=== PATIENT | female | born 1965 | race Caucasian/White ===

== ENCOUNTER 2019-01-24 19:56 | Emergency (ER) | payer OTHER, MEDICAID ==
[2019-01-24] MEDS ORDERED: ACETAMINOPHEN 325 MG TABLET PO ONE (20:37)
--- NOTE | 2019-01-24 21:01 | RADIOLOGY REPORT (SQ) ---
EXAM DESCRIPTION: XR WRIST 3 OR MORE VIEWS COMPLETED DATE/TME: 01/24/2019 00:00 CLINICAL HISTORY: 53 years, Female, left wrist pain COMPARISON: None. NUMBER OF VIEWS: 3 TECHNIQUE: 3 views left wrist LIMITATIONS: None. FINDINGS: Osteopenia. Fixation plate and screws of the distal radius. Old healed distal radial metaphyseal fracture. No acute fracture or dislocation. Mild diffuse soft tissue swelling IMPRESSION: No acute osseous abnormality copyright 2010 [employer]- All Rights Reserved
--- NOTE | 2019-01-24 21:24 | ER Document Report ---
ED General - General Chief Complaint: Wrist Pain Stated Complaint: WRIST PAIN Time Seen by Provider: 01/24/19 21:13 TRAVEL OUTSIDE OF THE [place] IN LAST 30 DAYS: No - HPI Notes: Patient is a 53-year-old female presents emergency department for evaluation of left wrist pain. She is a history of fractures and surgical fixation of the left wrist. She states she was lifting at work yesterday when she felt a pop. She has had swelling since then. She was concerned she might have fractured something new. She denies any numbness or tingling, no other injuries. - Related Data Allergies/Adverse Reactions: No Known Allergies Allergy (Unverified 01/24/19 20:11) Past Medical History - General Information source: Patient - Vapes - Social History Smoking Status: Current Every Day Smoker Family History: Reviewed & Not Pertinent Patient has suicidal ideation: No Patient has homicidal ideation: No - Past Medical History Cardiac Medical History: Reports: Hx Hypertension Renal/ Medical History: Denies: Hx Peritoneal Dialysis Past Surgical History: Reports: Hx Orthopedic Surgery - left wrist Review of Systems - Review of Systems Constitutional: No symptoms reported EENT: No symptoms reported Cardiovascular: No symptoms reported Respiratory: No symptoms reported Gastrointestinal: No symptoms reported Genitourinary: No symptoms reported Musculoskeletal: See HPI Skin: No symptoms reported Neurological/Psychological: No symptoms reported Physical Exam - Vital signs Vitals: Temp Pulse Resp BP Pulse Ox 98.8 F 81 16 159/102 H 97 01/24/19 20:05 01/24/19 20:05 01/24/19 20:05 01/24/19 20:05 01/24/19 20:05 - Notes Notes: Is a pleasant 53-year-old female who appears her stated age in acute distress. Heart is regular rate and rhythm, lungs are clear to oscillation bilaterally. Physical exam is limited the area of chief complaint. Examination of the left upper extremity yields a moderate amount of swelling over the volar aspect of the wrist. She is full range of motion of the shoulder, elbow, wrist, fingers, thumb. No anatomical snuffbox tenderness to palpation. Radial pulses 2+. Capillary refill is brisk, sensation is intact. Course - Re-evaluation Re-evalutation: 01/24/19 21:22 Patient presents emergency department for evaluation. It seems that she suffered a left wrist strain. She has no fractures on imaging. No anatomical snuffbox tenderness. She is placed in a cock-up splint. We will send her on anti-inflammatories with close follow-up. She is to return to the ED with worsening or new concerning symptoms of any sort. - Vital Signs Vital signs: Temp Pulse Resp BP Pulse Ox 98.8 F 81 16 159/102 H 97 01/24/19 20:05 01/24/19 20:05 01/24/19 20:05 01/24/19 20:05 01/24/19 20:05 Discharge - Discharge Clinical Impression: Strain of left wrist Condition: Stable Disposition: HOME, SELF-CARE Instructions: Wrist Sprain ([facility]) Additional Instructions: Wear splint for comfort. Take anti-inflammatories as directed, with food. Follow-up with primary care next week. Return to emergency department for worsening or new concerning symptoms of any sort.
[2019-01-24 21:39] VITALS: BP 143/99
== END 2019-01-24 21:36 | disposition home or self-care (01) ==
LOC: ER 19:56
DX: M25.532 Pain in left wrist (principal); X50.9XXA Other and unspecified overexertion or strenuous movements or postures, initial encounter; Y99.0 Civilian activity done for income or pay; F17.200 Nicotine dependence, unspecified, uncomplicated; I10 Essential (primary) hypertension; Z98.890 Other specified postprocedural states
CPT/HCPCS: 99283; 73110; L3908